=== PATIENT | female | born 1960 | race African-American/Black ===

== ENCOUNTER 2018-08-14 15:28 | Emergency (ER) | payer OTHER ==
[~2018-08-14] VITALS: Ht 165.1 cm; Wt 93.0 kg
[2018-08-14] MEDS ORDERED: HYDROCHLOROTHIA25 M2 PO (15:54)
[2018-08-14] MEDS ORDERED: COZAAR 25 MG TA25 MG PO (15:54)
[2018-08-14] MEDS ORDERED: NORVASC10 MG PO (15:54)
[2018-08-14] MEDS ORDERED: NORCO 5-325 TA1 EAC1 PO (16:42)
[2018-08-14] MEDS ORDERED: PENICILLIN VK500 MG PO (16:42)
[2018-08-14 17:05] VITALS: BP 169/97
== END 2018-08-14 17:06 | disposition home or self-care (01) ==
LOC: M.ERS 15:28
DX: K04.7 Periapical abscess without sinus (principal); I10 Essential (primary) hypertension

== ENCOUNTER 2019-01-29 19:50 | Emergency (ER) | payer OTHER ==
[~2019-01-29] VITALS: Ht 167.6 cm; Wt 93.9 kg
[~2019-01-29 19:50] MED LIST: COZAAR 25 MG TA25 MG PO; HYDROCHLOROTHIA25 M2 PO; NORCO 5-325 TA1 EAC1 PO; NORVASC10 MG PO; PENICILLIN VK500 MG PO
[2019-01-29 21:09] VITALS: BP 185/99
[2019-01-29] MEDS ORDERED: COZAAR 25 MG TA25 M1 PO (21:26)
[2019-01-29] MEDS ORDERED: AMLODIPINE BESY10 MG PO (21:26)
[2019-01-29] MEDS ORDERED: HYDROXYZINE HCL25 M2 PO (21:26)
[2019-01-29] MEDS ORDERED: HYDROCHLOROTHIA25 M2 PO (21:26)
== END 2019-01-29 21:35 | disposition home or self-care (01) ==
LOC: M.ERS 19:50
DX: I16.0 Hypertensive urgency (principal); F17.210 Nicotine dependence, cigarettes, uncomplicated; Z98.890 Other specified postprocedural states; Z90.710 Acquired absence of both cervix and uterus